=== PATIENT | female | born 1960 | race Caucasian/White ===

== ENCOUNTER 2018-11-23 12:47 | Day surgery (SDC) | payer OTHER ==
[~2018-11-23] VITALS: Ht 134.6 cm; Wt 43.8 kg
[2018-11-23 15:26] VITALS: Ht 134.6 cm; Wt 43.8 kg
--- NOTE | 2018-11-23 15:34 | PREAC ---
Date/Time of Note Date/Time of Note DATE: 11/23/18 TIME: 15:31 Anesthesia Eval and Record Evaluation Time Pre-Procedure Interview DATE: 11/23/18 TIME: 15:31 Age 58 Sex female NPO: 8 hrs Preoperative diagnosis odynophagia, screening for colon cancer Planned procedure EGD, colonoscopy Past Medical History Past Medical History: None GI: GERD Surgery & Anesthesia Issues No known issue Meds Anticoagulation: No Beta Marina within 24 hr: No Reason Beta Marina not given: Pt. not on B-Marina Meds reviewed: Yes Allergies Allergies Reviewed: Yes Labs/Studies Labs Reviewed: Reviewed by anesthesiologist test: N/A (hysterectomy) Pre-procedure Exam Airway: Adequate mouth opening, Adequate thyromental dist Mallampati: Mallampati II Teeth: Normal Lung: Normal Heart: Normal ASA Physical Status ASA physical status: 1 Emergency: None Planned Anesthetic General/MAC: Mask Planned Pain Management Parenteral pain med Pre-operative Attestations Prior to commencing anesthesia and surgery, the patient was re-evaluated, there was verification of: *The patient's identity *The results of appropriate recent lab work and preoperative vital signs *The above evaluation not changing prior to induction *Anesthetic plan, risk benefits, alternative and complications discussed with patient/family; questions answered; patient/family understands, accepts and wishes to proceed. ALAN BELLAMY MD Nov 23, 2018 15:34
[2018-11-23] MEDS ORDERED: PANTOPRAZOLE PO (15:36)
[2018-11-23] MEDS ORDERED: PROPOFOL 40 ML ONE (15:38)
[2018-11-23] MEDS ORDERED: LIDOCAINE 2% (SDV) 5 ML INJ ONE (15:38)
[2018-11-23] MEDS ORDERED: ONDANSETRON 4 MG INJ IV PRN (16:00)
[2018-11-23] MEDS ORDERED: HYDROmorphONE 1 MG/5 ML IV SYRINGE IV PRN (16:00)
--- NOTE | 2018-11-23 16:13 | PAC ---
Date/Time of Note Date/Time of Note DATE: 11/23/18 TIME: 16:13 Post-Anesthesia Notes Post-Anesthesia Note Activity: WNL Respiratory function: WNL Cardiovascular function: WNL Mental status: Baseline Pain reasonably controlled: Yes Hydration appropriate: Yes Nausea/Vomiting absent: Yes Comments BP: 116/72 HR: 67 RR: 15 T: 98 SaO2: 100% ALAN BELLAMY MD Nov 23, 2018 16:13
[2018-11-23 16:29] VITALS: BP 146/67; PULSE 68; RESP 15
[2018-11-23 17:00] VITALS: BP 151/69; PULSE 73; RESP 15
== END 2018-11-23 17:17 | disposition home or self-care (01) ==
LOC: GIL 12:47
PROVIDERS: ATTEND Internal Medicine Gastroenterology
DX: Z12.11 Encounter for screening for malignant neoplasm of colon (principal); K64.8 Other hemorrhoids; K44.9 Diaphragmatic hernia without obstruction or gangrene